=== PATIENT | male | born 1985 | race Caucasian/White ===

== ENCOUNTER 2017-03-05 19:51 | Emergency (ER) | payer BC ==
[~2017-03-05] VITALS: Ht 177.8 cm; Wt 86.2 kg
[2017-03-05 20:00] VITALS: BP 120/72
[2017-03-05] MEDS ORDERED: TETRACAINE 0.5% OPHTH SOLUTION 4ML BOTTLE. OD ONE (20:15)
[2017-03-05] MEDS ORDERED: FLUORESCEIN OPHTH TEST STRIP. OD ONE (20:15)
[2017-03-05] MEDS ORDERED: DIPHTH,PERTUSS(ACELL),TET TOX 0.5 ML DISP.SYRIN. VAX IM ONE (20:45)
[2017-03-05] MEDS ORDERED: HYDR-971 PO (20:59)
[2017-03-05] MEDS ORDERED: ERYT1OIN6 EACHEYE (20:59)
--- NOTE | 2017-03-05 20:59 | PHYS DOC ---
Past Medical History Past Medical History: Asthma Past Surgical History: Appendectomy Alcohol Use: Occasionally Drug Use: None Adult General Chief Complaint Chief Complaint: EYE PROBLEMS HPI HPI Patient is a 31 year old male who presents with foreign object to the right eye. Patient states he was working underneath a car with eye protection and he believes something fell into his right eye. 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 Patient denies any vision loss. Review of Systems Review of Systems Constitutional: Denies fever or chills [] Eyes: Foreign object to the right eye HENT: Denies nasal congestion or sore throat [] Musculoskeletal: Denies back pain or joint pain [] Integument: Denies rash or skin lesions [] Neurologic: Denies headache, focal weakness or sensory changes [] Endocrine: Denies polyuria or polydipsia [] Current Medications Current Medications Current Medications Medications (Trade) Dose Ordered Sig/Genoveva Start Time Stop Time Status Last Admin Dose Admin Diphtheria/ Tetanus/Acell Pertussis (Boostrix) 0.5 ml ONCE ONCE 03/05/17 20:45 03/05/17 20:46 DC Fluorescein Sodium (Ful-Tammy) 1 strip 1X ONCE 03/05/17 20:15 03/05/17 20:16 DC 03/05/17 20:29 1 STRIP Tetracaine HCl (Tetracaine) 1 drop 1X ONCE 03/05/17 20:15 03/05/17 20:16 DC 03/05/17 20:29 1 DROP Allergies Allergies Allergies Coded Allergies Type Severity Reaction Last Updated Verified No Known Drug Allergies 03/05/17 No Physical Exam Physical Exam Constitutional: Well developed, well nourished, no acute distress, non-toxic appearance. [] HENT: Normocephalic, atraumatic, bilateral external ears normal, oropharynx moist, no oral exudates, nose normal. [] Eyes: PERRLA, EOMI, right conjunctiva is mildly injected, with clear discharge Fundi exam is normal. There is an obvious tiny rust ring at the 06:30 position Skin: Warm, dry, no erythema, no rash. [] Back: No tenderness, no CVA tenderness. [] Extremities: No tenderness, no cyanosis, no clubbing, ROM intact, no edema. [] Neurologic: Alert and oriented X 3, normal motor function, normal sensory function, no focal deficits noted. [] Psychologic: Affect normal, judgement normal, mood normal. [] Current Patient Data Vital Signs Vital Signs Date Time Temp Pulse Resp B/P (MAP) Pulse Ox O2 Delivery O2 Flow Rate FiO2 03/05/17 20:00 97.7 78 16 96 Room Air 97.7 EKG EKG [] Radiology/Procedures Radiology/Procedures [] Course & Med Decision Making Course & Med Decision Making Pertinent Labs and Imaging studies reviewed. (See chart for details) Patient is in the ED with a rust ring on the right cornea. I offered to remove it considering this just happened a few hours ago. Patient refused. Provided patient an auto repair shop manager for follow-up tomorrow. He was given tetanus in the ED. Discharged with erythromycin. Visual acuity was documented with no acute findings. Dragon Disclaimer Dragon Disclaimer This electronic medical record was generated, in whole or in part, using a voice recognition dictation system. Departure Departure Impression: Primary Impression: Corneal rust ring of right eye Disposition: HOME, SELF-CARE Condition: STABLE Referrals: NO PCP (PCP) JOHNNY MAY MD Follow-up with the provided eye doctor in one day Patient Instructions: Eye - Corneal Foreign Body Additional Instructions: You were seen for rust ring to the right cornea. Use the eye ointment as prescribed. Follow-up with the provided auto repair shop manager tomorrow. Take the prescribed pain medicine as needed. Scripts Hydrocodone/Apap 5-325 (NORCO 5-325 TABLET) 1 Each Tablet 1-2 TAB PO Q4-6HRS, #12 TAB Prov: ZAC WRIGHT CALENDER MACHINE OPERATOR 03/05/17 Erythromycin Base (ERYTHROMYCIN) 3.5 Gm Oint...g. 1 OSCAR EACHEYE Q4HRS W/A, #3.5 GM Prov: ZAC WRIGHT CALENDER MACHINE OPERATOR 03/05/17 AZC WRIGHT CALENDER MACHINE OPERATOR Mar 05, 2017 20:59
== END 2017-03-05 21:06 | disposition home or self-care (01) ==
LOC: ER 19:51
DX: T15.01XA Foreign body in cornea, right eye, initial encounter (principal); J45.909 Unspecified asthma, uncomplicated; X58.XXXA Exposure to other specified factors, initial encounter; Y93.89 Activity, other specified; Y99.8 Other external cause status; Y92.89 Other specified places as the place of occurrence of the external cause
CPT/HCPCS: 90471; 90715; 99283-25

== ENCOUNTER 2017-04-22 22:44 | Emergency (ER) | payer BC ==
[~2017-04-22] VITALS: Ht 175.3 cm; Wt 84.4 kg
[~2017-04-22 22:44] MED LIST: ERYT1OIN6 EACHEYE; HYDR-971 PO
[2017-04-22] MEDS ORDERED: IV NORMAL SALINE 1000ML BAG 1,000 ML IV ONE (23:45)
[2017-04-22] MEDS ORDERED: METOCLOPRAMIDE HCL 10 MG/2 ML VIAL. IV ONE (23:45)
[2017-04-22] MEDS ORDERED: diphenhydrAMINE 50 MG/ML VIAL IVP ONE (23:45)
[2017-04-22] MEDS ORDERED: KETOROLAC 15 MG/ML VIAL. IV ONE (23:45)
[2017-04-22 23:48] LABS: BASO % 1 % (0-3); EOS % 6 % (0-3); HEMATOCRIT 49.4 % (39.0-53.0); LYMPH # 1.6 x10^3/uL (1.0-4.8); LYMPH % 41 % (24-48); MEAN CORPUSCULAR HEMOGLOBIN 32 pg (25-35); MEAN CORPUSCULAR HGB CONC 34 g/dL (31-37); MEAN CORPUSCULAR VOLUME 92 fL (79-100); MONO % 15 % (0-9); NEUT % 38 % (31-73); PLATELET COUNT 185 x10^3/uL (140-400); RED BLOOD COUNT 5.38 x10^6/uL (4.30-5.70); WHITE BLOOD COUNT 3.8 x10^3/uL (4.0-11.0)
[2017-04-22 23:57] LABS: CALCIUM 8.8 mg/dL (8.5-10.1); GFR 88.3; POTASSIUM 3.9 mmol/L (3.5-5.1)
--- NOTE | 2017-04-22 23:58 | RAD ---
EXAM: CT HEAD WITHOUT CONTRAST. HISTORY: Headache. TECHNIQUE: Computed tomography of the head was performed without intravenous contrast. COMPARISON: None. FINDINGS: There is no intracranial hemorrhage. Eid-white differentiation is preserved. The ventricles are normal in size and position. The visualized paranasal sinuses appear clear. The orbits are unremarkable. The temporal bones are unremarkable. The calvarium reveals no suspicious lesions. IMPRESSION: 1. No acute intracranial findings. *One or more of the following individualized dose reduction techniques were utilized for this examination: 1. Automated exposure control. 2. Adjustment of the mA and/or kV according to patient size. 3. Use of iterative reconstruction technique. Electronically signed by: Merrill Aguilar MD (04/22/2017 11:55 PM) [facility]
[2017-04-23 00:03] LABS: ALBUMIN 3.9 g/dL (3.4-5.0); ALBUMIN/GLOBULIN RATIO 1.1 (1.0-1.7); TOTAL BILIRUBIN 0.3 mg/dL (0.2-1.0); TOTAL PROTEIN 7.3 g/dL (6.4-8.2)
--- NOTE | 2017-04-23 00:42 | PHYS DOC ---
Past Medical History Past Medical History: Asthma Past Surgical History: Appendectomy Alcohol Use: Occasionally Drug Use: None Adult General Chief Complaint Chief Complaint: HEADACHE HPI HPI Patient is a 31 year old gentleman who presents here today complaining of headache for 5 days. Patient reports she woke up with his headache 5 days ago and has been persistent since. Patient denies any fevers shakes chills nausea vomiting diarrhea cough cold runny nose dysuria frequency or urgency. Patient denies any double vision or blurred vision. Patient denies any weakness his upper or lower semis. Patient denies any sore throat or ear pain. Patient reports he takes Tylenol with some relief of the headache comes back again. Patient denies any history of hypertension diabetes liver or kidney problems. Patient has a history of asthma the child. Patient status post an appendectomy. Patient smokes occasionally drinks occasionally but does no drugs. Patient reports no prior history of migraine headaches in the past. Patient reports she' s had headaches very similar to this in the past however they've never lasted this long. Patient's physical exam is significant for normal TMs. No bulging no erythema. His oropharynx is clear. No exudates no lymphadenopathy. His neck is supple without any Kernig's or Buczynski sign. Patient has no photophobia. Patient has no signs that would be consistent with meningitis. Patient's fundus exam was normal. Patient's heart lungs and abdomen are all within normal limits. Constitutional: Denies fever or chills [] Eyes: Denies change in visual acuity, redness, or eye pain [] HENT: Denies nasal congestion or sore throat [] All other review systems are negative except as documented in the history of present illness portion. Constitutional: Well developed, well nourished, no acute distress, non-toxic appearance. [] HENT: Normocephalic, atraumatic, bilateral external ears normal, oropharynx moist, no oral exudates, nose normal. [] Eyes: PERRLA, EOMI, conjunctiva normal, no discharge. [] Neck: Normal range of motion, no tenderness, supple, no stridor. [] Cardiovascular:Heart rate regular rhythm, Lungs & Thorax: Bilateral breath sounds clear to auscultation [] Abdomen: Bowel sounds normal, soft, no tenderness, no masses, no pulsatile masses. [] Skin: Warm, dry, no erythema, no rash. [] Back: No tenderness, no CVA tenderness. [] Extremities: No tenderness, no cyanosis, no clubbing, ROM intact, no edema. [] Neurologic: Alert and oriented X 3, normal motor function, normal sensory function, no focal deficits noted. [] Psychologic: Affect normal, judgement normal, mood normal. [] Patient's ER workup was significant for normal CT scan of his head as well as a normal CBC and chemistry. Patient received Toradol Benadryl and Reglan as well as IV fluids in the ED with significant resolution in his headache. Patient reports currently he is headache free. Assessment and plan This is a 31-year-old gentleman who presents here today with a headache for 5 days. The headache is not consistent with infectious source/meningitis. The headache is not consistent with a subarachnoid hemorrhage. The headache is not consistent with glaucoma. The headache is not consistent with temporal arteritis. Patient has been treated in the ER feels much improved. Patient will be discharged home and will be instructed to take ibuprofen as needed for his headache and to follow-up with his primary care physician for further evaluation and management of his headache. Current Medications Current Medications Current Medications Medications (Trade) Dose Ordered Sig/Genoveva Start Time Stop Time Status Last Admin Dose Admin Diphenhydramine HCl (Benadryl) 50 mg 1X ONCE 04/22/17 23:45 04/22/17 23:46 DC 04/22/17 23:54 50 MG Ketorolac Tromethamine (Toradol) 15 mg 1X ONCE 04/22/17 23:45 04/22/17 23:46 DC 04/22/17 23:54 15 MG Metoclopramide HCl (Reglan) 10 mg 1X ONCE 04/22/17 23:45 04/22/17 23:46 DC 04/22/17 23:54 10 MG Sodium Chloride 1,000 ml @ 1,000 mls/hr 1X ONCE 04/22/17 23:45 04/23/17 00:44 04/22/17 23:54 1,000 MLS/HR Allergies Allergies Allergies Coded Allergies Type Severity Reaction Last Updated Verified No Known Drug Allergies 03/05/17 No Current Patient Data Vital Signs Vital Signs Date Time Temp Pulse Resp B/P (MAP) Pulse Ox O2 Delivery O2 Flow Rate FiO2 04/22/17 22:56 99.8 86 16 133/78 (96) 96 Room Air 99.8 Lab Values Laboratory Tests Test 04/22/17 22:30 White Blood Count 3.8 x10^3/uL (4.0-11.0) L Red Blood Count 5.38 x10^6/uL (4.30-5.70) Hemoglobin 17.0 g/dL (13.0-17.5) Hematocrit 49.4 % (39.0-53.0) Mean Corpuscular Volume 92 fL (79-100) Mean Corpuscular Hemoglobin 32 pg (25-35) Mean Corpuscular Hemoglobin Concent 34 g/dL (31-37) Red Cell Distribution Width 14.0 % (11.5-14.5) Platelet Count 185 x10^3/uL (140-400) Neutrophils (%) (Auto) 38 % (31-73) Lymphocytes (%) (Auto) 41 % (24-48) Monocytes (%) (Auto) 15 % (0-9) H Eosinophils (%) (Auto) 6 % (0-3) H Basophils (%) (Auto) 1 % (0-3) Neutrophils # (Auto) 1.5 x10^3uL (1.8-7.7) L Lymphocytes # (Auto) 1.6 x10^3/uL (1.0-4.8) Monocytes # (Auto) 0.6 x10^3/uL (0.0-1.1) Eosinophils # (Auto) 0.2 x10^3/uL (0.0-0.7) Basophils # (Auto) 0.0 x10^3/uL (0.0-0.2) Sodium Level 141 mmol/L (136-145) Potassium Level 3.9 mmol/L (3.5-5.1) Chloride Level 105 mmol/L (98-107) Carbon Dioxide Level 26 mmol/L (21-32) Anion Gap 10 (6-14) Blood Urea Nitrogen 10 mg/dL (8-26) Creatinine 1.0 mg/dL (0.7-1.3) Estimated GFR (Cockcroft-Gault) 88.3 BUN/Creatinine Ratio 10 (6-20) Glucose Level 105 mg/dL (70-99) H Calcium Level 8.8 mg/dL (8.5-10.1) Total Bilirubin 0.3 mg/dL (0.2-1.0) Aspartate Amino Transferase (AST) 21 U/L (15-37) Alanine Aminotransferase (ALT) 17 U/L (16-63) Alkaline Phosphatase 62 U/L (46-116) Total Protein 7.3 g/dL (6.4-8.2) Albumin 3.9 g/dL (3.4-5.0) Albumin/Globulin Ratio 1.1 (1.0-1.7) Laboratory Tests 04/22/17 22:30 Laboratory Tests 04/22/17 22:30 EKG EKG [] Radiology/Procedures Radiology/Procedures [] Course & Med Decision Making Course & Med Decision Making Pertinent Labs and Imaging studies reviewed. (See chart for details) [] Dragon Disclaimer Dragon Disclaimer This electronic medical record was generated, in whole or in part, using a voice recognition dictation system. Departure Departure Impression: Primary Impression: Headache Disposition: 01 HOME, SELF-CARE Condition: IMPROVED Referrals: NO PCP (PCP) Patient Instructions: General Headache Without Cause Additional Instructions: Please follow up with her primary care physician for further management of her headache if it persists. He might need to be referred to a neurologist. In the meantime he may take Tylenol or ibuprofen as needed for your headache. He may still take Benadryl to help you sleep at night. SAM PEREZ MD Apr 23, 2017 00:42
[2017-04-23 00:50] VITALS: BP 125/62
== END 2017-04-23 00:56 | disposition home or self-care (01) ==
LOC: ER 22:44
DX: R51 Headache (principal); J45.909 Unspecified asthma, uncomplicated
CPT/HCPCS: 36415; 70450; 80053; 85027; 96361; 96374; 96375; 99285; J1200; J1885; J2765; J7030

== ENCOUNTER 2017-08-14 08:51 | Emergency (ER) | payer BC ==
[~2017-08-14] VITALS: Ht 177.8 cm; Wt 79.8 kg
[2017-08-14 08:55] VITALS: BP 154/82
[2017-08-14] MEDS ORDERED: KETOROLAC 60 MG/2 ML INJ. IM ONE (09:15)
[2017-08-14] MEDS ORDERED: HYDR-2758 PO (09:16)
[2017-08-14] MEDS ORDERED: BACI28.34 TP (09:16)
[2017-08-14] MEDS ORDERED: IBUP-1027 PO (09:16)
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
== END 2017-08-14 09:25 | disposition home or self-care (01) ==
LOC: ER 08:51
DX: S83.91XA Sprain of unspecified site of right knee, initial encounter (principal); J45.909 Unspecified asthma, uncomplicated; Y08.89XA Assault by other specified means, initial encounter; Y93.89 Activity, other specified; Y99.8 Other external cause status; Y92.89 Other specified places as the place of occurrence of the external cause
CPT/HCPCS: 99284